=== PATIENT | female | born 1945 | race Asian ===

== ENCOUNTER 2016-09-15 09:52 | Outpatient (CLI) | payer MEDICARE, OTHER | END 2016-09-15 09:53 | disposition home or self-care (01) | DX: Z53.9 Procedure and treatment not carried out, unspecified reason (principal) ==

== ENCOUNTER 2016-09-15 09:55 | Outpatient (CLI) | payer MEDICARE, OTHER | END 2016-09-15 09:56 | disposition home or self-care (01) | DX: M85.88 Other specified disorders of bone density and structure, other site (principal) ==

== ENCOUNTER 2017-08-23 08:18 | Outpatient (CLI) | payer MEDICARE, OTHER ==
--- NOTE | 2017-08-24 21:28 | Mammography Report ---
DATE OF SERVICE: 08/23/2017 DIGITAL SCREENING MAMMOGRAM: 08/23/2017 CLINICAL INDICATION: A 72-year-old with history of late childbearing, family history of breast cancer for screening. COMPARISON: 08/2015, 06/2014, 05/2012. TECHNIQUE: Routine CC and MLO projections were obtained of the breasts. The breasts demonstrate heterogeneously dense fibroglandular parenchyma bilaterally. Coarse, typically benign calcifications are present. No suspicious masses, clustered microcalcifications, or regions of architectural distortion are identified. IMPRESSION: Benign findings. RECOMMENDATIONS: Routine annual screening unless otherwise clinically indicated. BIRADS category 2 benign findings. STANDARD QUALIFYING STATEMENTS 1. This examination was reviewed with the aid of Computed-Aided Detection (CAD). 2. A negative or benign imaging report should not delay biopsy if clinically suspicious findings are present. Consider surgical consultation if warranted. More than 5% of cancers are not identified by imaging. 3. Dense breasts may obscure an underlying neoplasm. TD: 08/24/2017 22:27
== END 2017-08-23 08:19 | disposition home or self-care (01) ==
LOC: DI 08:18
PROVIDERS: ATTEND Internal Medicine
DX: Z12.31 Encounter for screening mammogram for malignant neoplasm of breast (principal); Z80.3 Family history of malignant neoplasm of breast
CPT/HCPCS: 77067

== ENCOUNTER 2018-09-14 16:32 | Outpatient (CLI) | payer MEDICARE, OTHER ==
--- NOTE | 2018-09-15 08:09 | Mammography Report ---
Reason: SCREENING MAMMO Procedure Date: 09/14/2018 Accession Number: [id number] / [id number] Procedure: PRIYA - Screening Mammo w/Ernesto CPT Code: FULL RESULT: EXAM: Screening Mammo w/Ernesto DATE: 09/14/2018 5:05 PM CLINICAL HISTORY: Screening encounter. History of late childbearing. TECHNIQUE: Bilateral CC and MLO views were obtained. COMPARISON: 08/23/2017 through 07/03/2014. FINDINGS: The breasts demonstrate heterogeneously dense fibroglandular parenchyma bilaterally. Coarse typically benign calcifications are again seen. No suspicious masses, clustered microcalcifications, or regions of architectural distortion are identified. IMPRESSION: Benign findings RECOMMENDATION: Routine annual screening unless otherwise clinically indicated. BIRADS CATEGORY 2: Benign findings STANDARD QUALIFYING STATEMENTS: 1. This examination was not reviewed with the aid of Computer-Aided Detection (CAD). 2. A negative or benign imaging report should not delay biopsy if clinically suspicious findings are present. Consider surgical consultation if warrented. More than 5% of cancers are not identified by imaging. 3. Dense breasts may obscure an underlying neoplasm. 4. This examination was reviewed with the aid of 3D breast imaging (tomosynthesis).
== END 2018-09-14 16:33 | disposition home or self-care (01) ==
LOC: DI 16:32
PROVIDERS: ATTEND Internal Medicine
DX: Z12.31 Encounter for screening mammogram for malignant neoplasm of breast (principal)
CPT/HCPCS: 77063; 77067

== ENCOUNTER 2019-03-24 09:03 | Outpatient (CLI) | payer MEDICARE, OTHER ==
--- NOTE | 2019-03-26 02:24 | XRAY Report ---
Reason: BILATE KNEE PAIN Procedure Date: 03/24/2019 Accession Number: [id number] / [id number] Procedure: XR - Knee 3 View BILAT CPT Code: FULL RESULT: EXAM: BILATERAL KNEE RADIOGRAPHY EXAM DATE: 03/24/2019 09:10 AM. CLINICAL HISTORY: Bilateral knee pain. COMPARISON: None. TECHNIQUE: 3 views each knee. FINDINGS: Right: Bones: No fracture seen. No acute osseous abnormality. Joints: No dislocation seen. Joint spaces are relatively well preserved. No joint effusion identified. Soft Tissues: Grossly unremarkable. Left: Bones: No fracture seen. No acute osseous abnormality. Joints: No dislocation seen. Joint spaces are relatively well preserved. No joint effusion identified. Soft Tissues: Grossly unremarkable. IMPRESSION: No significant abnormality seen in the knees bilaterally. Right: Kellgren Scott Grade 0. Left: Kellgren Scott Grade 0. Kellgren and Scott classification of osteoarthritis: Grade 0: no radiographic features of osteoarthritis are present Grade 1: doubtful joint space narrowing (JSN) and possible osteophytic lipping Grade 2: definite osteophytes and possible JSN on anteroposterior weight-bearing radiograph Grade 3: multiple osteophytes, definite JSN, sclerosis, possible bony deformity Grade 4: large osteophytes, marked JSN, severe sclerosis and definite bony deformity RADIA
== END 2019-03-24 09:04 | disposition home or self-care (01) ==
LOC: DI 09:03
PROVIDERS: ATTEND Internal Medicine
DX: M25.561 Pain in right knee (principal); M25.562 Pain in left knee

== ENCOUNTER 2019-12-12 13:33 | Emergency (ER) | payer MEDICARE, OTHER ==
--- NOTE | 2019-12-12 13:45 | ED Physician Documentation ---
PD HPI URI - Stated complaint Stated Complaint: FLU LIKE SYMPTOMS - Chief complaint Chief Complaint: General - History obtained from History obtained from: Patient - History of Present Illness Timing - onset: How many days ago (2) Timing duration: Days (2) Timing details: Abrupt onset, Still present, Waxing and waning Associated symptoms: Fever, Chills, Dyspnea (mild), NVD (nausea but no diarrhea, vomited couple of times). No: Dry cough, Productive cough, Chest pain Contributing factors: No: Sick contact, Immunocompromised, COPD / asthma Similar symptoms before: No diagnosis Recently seen: Not recently seen Review of Systems Constitutional: reports: Fever, Chills, Myalgias Nose: reports: Congestion. denies: Rhinorrhea / runny nose Throat: denies: Sore throat Cardiac: denies: Chest pain / pressure Respiratory: reports: Dyspnea. denies: Cough, Wheezing GI: reports: Nausea, Vomiting. denies: Abdominal Pain, Diarrhea : denies: Dysuria, Frequency Skin: denies: Rash, Lesions Musculoskeletal: denies: Neck pain, Back pain Neurologic: denies: Altered mental status, Headache PD PAST MEDICAL HISTORY - Past Medical History Cardiovascular: Hypertension - Present Medications Home Medications: Ambulatory Orders Medication Instructions Recorded Confirmed Sulfamethox/Trimeth 800/160 1 each PO BID #14 tablet 12/12/19 [Bactrim Ds 800/160] - Allergies Allergies/Adverse Reactions: Allergies Allergy/AdvReac Type Severity Reaction Status Date / Time No Known Drug Allergies Allergy Verified 12/12/19 13:42 PD ED PE NORMAL - Vitals Vital signs reviewed: Yes - General General: Alert and oriented X 3, No acute distress, Well developed/nourished - HEENT HEENT: Ears normal, Moist mucous membranes, Pharynx benign - Neck Neck: Supple, no meningeal sign, No adenopathy - Cardiac Cardiac: RRR, No murmur - Respiratory Respiratory: Clear bilaterally - Abdomen Abdomen: Normal bowel sounds, Soft, Non tender, Non distended - Back Back: No CVA TTP - Derm Derm: Normal color, Warm and dry, No rash - Extremities Extremities: Normal ROM s pain, No edema, No calf tenderness / cord - Neuro Neuro: Alert and oriented X 3, No motor deficit, Normal speech Results - Vitals Vitals: Vital Signs - 24 hr 12/12/19 12/12/19 12/12/19 13:38 13:57 15:22 Temperature 36.6 C 36.9 C 36.9 C Heart Rate 88 86 93 Respiratory 16 16 16 Rate Blood Pressure 130/80 120/73 130/76 O2 Saturation 98 97 99 Oxygen O2 Source Room air - Labs Labs: Laboratory Tests 12/12/19 14:25 Urine Color YELLOW Urine Clarity CLEAR Urine pH 6.0 Ur Specific [place] 1.010 Urine Protein NEGATIVE Urine Glucose (UA) NEGATIVE Urine Ketones NEGATIVE Urine Occult Blood LARGE H Urine Nitrite NEGATIVE Urine Bilirubin NEGATIVE Urine Urobilinogen 0.2 (NORMAL) Ur Leukocyte Esterase LARGE H Urine RBC 6-10 H Urine WBC >25 H Urine WBC Clumps PRESENT Ur Squamous Epith Cells NONE SEEN Urine Bacteria Moderate H Ur Microscopic Review INDICATED Urine Culture Comments INDICATED - Rads (name of study) chest xray Radiology: Prelim report reviewed (no infiltrates), See rad report PD MEDICAL DECISION MAKING - ED course Complexity details: considered differential (concern for viral illness. Othe rwise can look for occult infection with cXR and UA. ), d/w patient Departure - Departure Disposition: Home, Self Care Clinical Impression: Flu-like symptoms UTI (urinary tract infection) Qualifiers: Urinary tract infection type: acute cystitis Hematuria presence: without hematuria Qualified Code(s): N30.00 - Acute cystitis without hematuria Condition: Stable Record reviewed to determine appropriate education?: Yes Instructions: ED UTI Cystitis Female Follow-Up: Kimo Weems MD [Primary Care Provider] - Prescriptions: Sulfamethox/Trimeth 800/160 [Bactrim Ds 800/160] 1 each PO BID #14 tablet Comments: Your chest x-ray appears normal. Your COVID test should result tomorrow and will call you with the results. You do have signs of urinary tract infection on your urine test and hopefully this is the main cause of your symptoms. We will treated with Bactrim antibiotic twice daily for a week. Stay well-hydrated. Tylenol or ibuprofen if needed for fevers or pains. Recheck if not improving well over the next 2 to 3 days. I transmitted your prescription to [facility] in [place]. Discharge Date/Time: 12/12/19 15:24
[2019-12-12 14:39] LABS: BILIRUBIN,URINE NEGATIVE (NEGATIVE); GLUCOSE, URINE (UA) NEGATIVE (NEGATIVE); KETONES,URINE (UA) NEGATIVE (NEGATIVE); LEUKOCYTE ESTERASE, URINE LARGE (NEGATIVE); NITRITE,URINE NEGATIVE (NEGATIVE); OCCULT BLOOD,URINE LARGE (NEGATIVE); PROTEIN,URINE NEGATIVE (NEGATIVE); UROBILINOGEN,URINE 0.2 (NORMAL) E.U./dL (NORMAL)
[2019-12-12 14:45] LABS: CLARITY,URINE CLEAR (CLEAR)
[2019-12-12 14:58] LABS: BACTERIA,URINE Moderate /HPF (None Seen); SQUAMOUS EPITHELIAL CELL,UR NONE SEEN (<= Few); WBC CLUMPS,URINE PRESENT
--- NOTE | 2019-12-12 15:07 | XRAY Report ---
Reason: fever/malaise, no cough Procedure Date: 12/12/2019 Accession Number: [id number] / [id number] Procedure: XR - Chest 2 View X-Ray CPT Code: 98987 Final Report FULL RESULT: EXAM: CHEST RADIOGRAPHY EXAM DATE: 12/12/2019 02:26 PM. CLINICAL HISTORY: Fever/malaise, no cough. COMPARISON: None. TECHNIQUE: 2 views. FINDINGS: Lungs/Pleura: Mild bronchial wall thickening centrally. Minimal reticulation at the lung bases. No other focal consolidation or pleural effusions. No pneumothorax. Mediastinum: Cardiac silhouette size appears unremarkable. Tortuosity of the thoracic aorta. Atherosclerotic vascular calcification. Other: Cervical spine fusion hardware noted. IMPRESSION: 1. Mild bronchial wall thickening centrally, suggesting airways disease. 2. Minimal reticulation at the lung bases, which may be a small amount of atelectasis, scarring, or pneumonitis in the proper clinical setting. No other focal lung consolidation with pleural effusions. RADIA
[2019-12-12] MEDS ORDERED: SULFAMETH/TRIMETH DS 800/160 MG TABLET PO STA (15:17)
[2019-12-12 15:23] VITALS: BP 130/76
== END 2019-12-12 15:24 | disposition home or self-care (01) ==
LOC: ED 13:33
DX: R50.9 Fever, unspecified (principal); R06.00 Dyspnea, unspecified; R11.2 Nausea with vomiting, unspecified; N30.00 Acute cystitis without hematuria; I10 Essential (primary) hypertension; Z20.828 Contact with and (suspected) exposure to other viral communicable diseases
CPT/HCPCS: 71046; 81001; 81599; 87077; 87086; 87181; 99284; A9270; 81003

== ENCOUNTER 2020-02-08 10:06 | Outpatient (CLI) | payer MEDICARE ==
--- NOTE | 2020-02-08 16:52 | DEXA Report ---
Reason: OSTEOPENIA Procedure Date: 02/08/2020 Accession Number: [id number] / [id number] Procedure: DEX - Dexa Spine and/or Hip CPT Code: Final Report FULL RESULT: PROCEDURE: Dexa Spine and/or Hip INDICATIONS: OSTEOPENIA TECHNIQUE: Dual energy x-ray absorptiometry (DXA) was performed on a [id number]. Regions measured are the AP Spine, femoral neck, and if needed forearm. COMPARISON: 09/15/2016 FINDINGS: Lumbar Spine: Bone Mineral Density 1.008 g/cm/cm,T score -1.4, osteopenia Left Hip: Bone Mineral Density 0.930 g/cm/cm,T score -0.6, normal Left Femoral Neck: Bone Mineral Density 0.958 g/cm/cm, T score -0.6, normal (T score greater or equal to -1.0: NORMAL) (T score from -1.1 to -2.4: OSTEOPENIA) (T score less than or equal to -2.5 to: OSTEOPOROSIS) Impression: Mild osteopenia within the lumbar spine. Overall exam is relatively stable compared to prior exam with minimal interval progression in the left hip and femoral neck. Patients with diagnosis of osteoporosis or osteopenia should have regular bone mineral density assessment. For those eligible for Medicare, routine testing is allowed once every 2 years. Testing frequency can be increased for patients who have rapidly progressing disease or for those who are receiving medical therapy to restore bone mass. Reviewed by: Muna Cullen MD on 02/08/2020 4:51 PM PDT Approved by: Muna Cullen MD on 02/08/2020 4:51 PM PDT Station ID: [id number]
== END 2020-02-08 10:07 | disposition home or self-care (01) ==
LOC: DI 10:06
PROVIDERS: ATTEND Internal Medicine
DX: M85.80 Other specified disorders of bone density and structure, unspecified site (principal)
CPT/HCPCS: 77080

== ENCOUNTER 2021-06-23 10:49 | Emergency (ER) | payer MEDICARE ==
[2021-06-23 11:39] LABS: BASOPHILS # (AUTO) 0.1 10^3/uL (0.0-0.1); BASOPHILS % (AUTO) 0.4 %; EOSINOPHILS # (AUTO) 0.2 10^3/uL (0.0-0.7); EOSINOPHILS % (AUTO) 1.5 %; HCT - HEMATOCRIT 38.5 % (37.0-47.0); LYMPHOCYTES % (AUTO) 7.1 %; MEAN CORPUSCULAR HEMOGLOBIN 28.3 pg (27.0-31.0); MEAN CORPUSCULAR HGB CONC 33.8 g/dL (32.0-36.0); MEAN CORPUSCULAR VOLUME 83.9 fL (81.0-99.0); MEAN PLATELET VOLUME 9.6 fL (7.9-10.8); MONOCYTES # (AUTO) 0.7 10^3/uL (0.0-1.0); NEUTROPHILS # (AUTO) 12.4 10^3/uL (1.5-6.6); NEUTROPHILS % (AUTO) 85.7 %; PLT - PLATELET COUNT 195 10^3/uL (130-450); RED BLOOD COUNT 4.59 10^6/uL (4.20-5.40); RED CELL DISTRIBUTION WIDTH 13.2 % (12.0-15.0); WHITE BLOOD COUNT 14.4 x10^3/uL (4.8-10.8)
[2021-06-23 11:41] LABS: BILIRUBIN,URINE NEGATIVE (NEGATIVE); GLUCOSE, URINE (UA) NEGATIVE (NEGATIVE); KETONES,URINE (UA) NEGATIVE (NEGATIVE); LEUKOCYTE ESTERASE, URINE TRACE (NEGATIVE); NITRITE,URINE NEGATIVE (NEGATIVE); OCCULT BLOOD,URINE LARGE (NEGATIVE); PROTEIN,URINE TRACE mg/dL (NEGATIVE); UROBILINOGEN,URINE 0.2 (NORMAL) E.U./dL (NORMAL)
[2021-06-23 11:42] LABS: CLARITY,URINE HAZY (CLEAR)
[2021-06-23 11:50] LABS: BACTERIA,URINE Many /HPF (None Seen); SQUAMOUS EPITHELIAL CELL,UR FEW Squamous (<= Few)
[2021-06-23 11:53] LABS: ALBUMIN 4.6 g/dL (3.2-5.5); ALBUMIN/GLOBULIN RATIO 1.4 (1.0-2.2); BILIRUBIN,TOTAL 1.2 mg/dL (0.2-1.0); CALCIUM 9.3 mg/dL (8.5-10.3); CREATININE 0.9 mg/dL (0.4-1.0); POTASSIUM 3.5 mmol/L (3.5-5.0); TOTAL PROTEIN 7.8 g/dL (6.7-8.2)
[2021-06-23] MEDS ORDERED: SODIUM CHLORIDE 0.9% 1,000 ML IV STA (12:08)
[2021-06-23] MEDS ORDERED: cefTRIAXone 1 GM in SODIUM CHLORIDE 0.9% MINIBAG 100 ML IV STA (12:08)
--- NOTE | 2021-06-23 12:08 | ED Physician Documentation ---
History of Present Illness - Stated complaint Stated Complaint: CHILLS - Chief complaint Chief Complaint: General - History obtained from History obtained from: Patient - Additonal information Additional information: 76-year-old woman who is relatively healthy for age who last night developed chills and urinary incontinence without flank pain or measured fevers. She does not feel well but denies specific pains. No shortness of breath, cough, runny nose. The urinary incontinence is certainly acute for her. Review of Systems Constitutional: reports: Chills. denies: Fever Cardiac: denies: Chest pain / pressure, Palpitations Respiratory: denies: Dyspnea, Cough GI: denies: Abdominal Pain, Nausea, Vomiting PD PAST MEDICAL HISTORY - Past Medical History Cardiovascular: Hypertension Respiratory: None Neuro: None Endocrine/Autoimmune: None GI: None DAMAGE ASSESSOR: None : None HEENT: Chronic vision loss, Chronic sinusitis Psych: None Musculoskeletal: Other Derm: None - Past Surgical History Past Surgical History: Yes Ortho: Spine surgery /DAMAGE ASSESSOR: section, Hysterectomy - Present Medications Home Medications: Ambulatory Orders Medication Instructions Recorded Confirmed Atorvastatin Calcium [Lipitor] 80 mg PO HS 06/23/21 06/23/21 Ciprofloxacin HCl [Cipro] 500 mg PO BID #20 tablet 06/23/21 amLODIPine [Norvasc] 5 mg PO DAILY 06/23/21 06/23/21 - Allergies Allergies/Adverse Reactions: Allergies Allergy/AdvReac Type Severity Reaction Status Date / Time No Known Drug Allergies Allergy Verified 06/23/21 10:57 - Social History Does the pt smoke?: No Smoking Status: Never smoker Does the pt drink ETOH?: No Does the pt have substance abuse?: No - Immunizations Immunizations are current?: Yes - POLST Patient has POLST: No PD ED PE NORMAL - Vitals Vital signs reviewed: Yes - General General: Alert and oriented X 3, Other (Well-appearing laying in bed in no distress, modest resting tachycardia. Temperature on the high end of normal but technically not febrile) - Cardiac Cardiac: RRR, No murmur - Respiratory Respiratory: No respiratory distress, Clear bilaterally - Abdomen Abdomen: Normal bowel sounds, Soft, Non tender - Back Back: No CVA TTP, No spinal TTP - Derm Derm: Normal color, Warm and dry - Extremities Extremities: No edema, No calf tenderness / cord - Neuro Neuro: Alert and oriented X 3, Normal speech - Psych Psych: Normal mood, Normal affect Results - Vitals Vitals: Vital Signs - 24 hr 06/23/21 10:57 Temperature 37.7 C Heart Rate 119 H Respiratory 18 Rate Blood Pressure 109/71 O2 Saturation 96 Oxygen O2 Source Room air - Labs Labs: Laboratory Tests 06/23/21 06/23/21 06/23/21 11:15 11:35 11:35 WBC 14.4 H RBC 4.59 Hgb 13.0 Hct 38.5 MCV 83.9 MCH 28.3 MCHC 33.8 RDW 13.2 Plt Count 195 MPV 9.6 Neut # (Auto) 12.4 H Lymph # (Auto) 1.0 L Hood # (Auto) 0.7 Eos # (Auto) 0.2 Baso # (Auto) 0.1 Absolute Nucleated RBC 0.00 Nucleated RBC % 0.0 Sodium 140 Potassium 3.5 Chloride 104 Carbon Dioxide 23 Anion Gap 13.0 BUN 17 Creatinine 0.9 Estimated GFR (MDRD) 61 L Glucose 139 H Lactic Acid Calcium 9.3 Total Bilirubin 1.2 H AST 23 ALT 30 Alkaline Phosphatase 83 Total Protein 7.8 Albumin 4.6 Globulin 3.2 Albumin/Globulin Ratio 1.4 Urine Color YELLOW Urine Clarity HAZY Urine pH 6.0 Ur Specific [place] 1.010 Urine Protein TRACE Urine Glucose (UA) NEGATIVE Urine Ketones NEGATIVE Urine Occult Blood LARGE H Urine Nitrite NEGATIVE Urine Bilirubin NEGATIVE Urine Urobilinogen 0.2 (NORMAL) Ur Leukocyte Esterase TRACE H Urine RBC 6-10 H Urine WBC 4-5 Ur Squamous Epith Cells FEW Squamous Urine Bacteria Many H Ur Microscopic Review INDICATED Urine Culture Comments INDICATED 06/23/21 11:35 WBC RBC Hgb Hct MCV MCH MCHC RDW Plt Count MPV Neut # (Auto) Lymph # (Auto) Hood # (Auto) Eos # (Auto) Baso # (Auto) Absolute Nucleated RBC Nucleated RBC % Sodium Potassium Chloride Carbon Dioxide Anion Gap BUN Creatinine Estimated GFR (MDRD) Glucose Lactic Acid 1.4 Calcium Total Bilirubin AST ALT Alkaline Phosphatase Total Protein Albumin Globulin Albumin/Globulin Ratio Urine Color Urine Clarity Urine pH Ur Specific [place] Urine Protein Urine Glucose (UA) Urine Ketones Urine Occult Blood Urine Nitrite Urine Bilirubin Urine Urobilinogen Ur Leukocyte Esterase Urine RBC Urine WBC Ur Squamous Epith Cells Urine Bacteria Ur Microscopic Review Urine Culture Comments PD MEDICAL DECISION MAKING - ED course ED course: This is a marcus 76-year-old woman who has pyelonephritis and is treated here with Rocephin and a prescription for Cipro. Departure - Departure Disposition: 01 Home, Self Care Clinical Impression: UTI (urinary tract infection) Qualifiers: Urinary tract infection type: acute pyelonephritis Qualified Code(s): N10 - Acute pyelonephritis Condition: Good Record reviewed to determine appropriate education?: Yes Instructions: ED Kidney Infec Female Prescriptions: Ciprofloxacin HCl [Cipro] 500 mg PO BID #20 tablet Comments: You had a IV dose of antibiotics today, so you do not need to fill the prescription until tomorrow. We will culture your urine, the results should be done in 48-72 hours. If an antibiotic change is necessary we will call you. Return if worse in the meantime, especially if you develop increasing flank pain, fevers, or cannot keep down the medication. Follow-up with your doctor Wednesday or for recheck.
[2021-06-23 13:18] VITALS: BP 120/67
== END 2021-06-23 13:31 | disposition home or self-care (01) ==
LOC: ED 10:49
DX: N10 Acute pyelonephritis (principal); I10 Essential (primary) hypertension
CPT/HCPCS: 36415; 80053; 81001; 81003; 83605; 85025; 87077; 87086; 87181; 96365; 99283

== ENCOUNTER 2022-01-19 09:15 | Outpatient (CLI) | payer MEDICARE ==
--- NOTE | 2022-01-19 11:34 | XRAY Report ---
PROCEDURE: Foot 3 View BILAT INDICATIONS: PAIN IN BILAT FEET TECHNIQUE: 3 views of the bilateral feet were acquired. COMPARISON: None FINDINGS: Bones: No fractures or dislocations. No suspicious bony lesions. Bilateral hallux valgus and bunio n. Mild bilateral first MTP degenerative change. Soft tissues: No tibiotalar joint effusion. Achilles tendon appears normal. IMPRESSION: Bilateral hallux valgus and bunion. Bilateral mild first MTP degenerative change. Reviewed by: Sanjay Martinez MD on 01/19/2022 11:33 AM PDT Approved by: Sanjay Martinez MD on 01/19/2022 11:33 AM PDT Station ID: [id number]
== END 2022-01-19 09:16 | disposition home or self-care (01) ==
LOC: DI 09:15
PROVIDERS: ATTEND Internal Medicine
DX: M20.12 Hallux valgus (acquired), left foot (principal); M20.11 Hallux valgus (acquired), right foot; M21.612 Bunion of left foot; M21.611 Bunion of right foot; M19.071 Primary osteoarthritis, right ankle and foot; M19.072 Primary osteoarthritis, left ankle and foot

== ENCOUNTER 2022-02-19 09:56 | Outpatient (CLI) | payer MEDICARE ==
--- NOTE | 2022-02-19 15:30 | DEXA Report ---
PROCEDURE: Dexa Spine and/or Hip INDICATIONS: OSTEOPENIA TECHNIQUE: Dual energy x-ray absorptiometry (DXA) was performed on a [employer]. Regions measur ed are the AP Spine, femoral neck, and if needed forearm. COMPARISON: DEXA 02/08/2020 FINDINGS: Lumbar Spine: Bone Mineral Density 1.019 g/cm/cm,T score -1.3, compared to -1.4 Left Hip: Bone Mineral Density 0.990 g/cm/cm,T score -0.1, compared to -0.6 Left Femoral Neck: Bone Mineral Density 1.040 g/cm/cm, T score 0, compared to -0.6 (T score greater or equal to -1.0: NORMAL) (T score from -1.1 to -2.4: OSTEOPENIA) (T score less than or equal to -2.5 to: OSTEOPOROSIS) Impression: Relatively stable mild osteopenia within the lumbar spine. Mild improved bone mineral density within the hip and femoral neck. Patients with diagnosis of osteoporosis or osteopenia should have regular bone mineral density assess ment. For those eligible for Medicare, routine testing is allowed once every 2 years. Testing frequ ency can be increased for patients who have rapidly progressing disease or for those who are receivin g medical therapy to restore bone mass. Reviewed by: Muna Cullen MD on 02/19/2022 3:28 PM PDT Approved by: Muna Cullen MD on 02/19/2022 3:28 PM PDT Station ID: [id number]
== END 2022-02-19 09:57 | disposition home or self-care (01) ==
LOC: DI 09:56
PROVIDERS: ATTEND Internal Medicine
DX: M85.88 Other specified disorders of bone density and structure, other site (principal)

== ENCOUNTER 2023-01-11 14:10 | Outpatient (CLI) | payer MEDICARE ==
--- NOTE | 2023-01-11 16:54 | XRAY Report ---
PROCEDURE: Hip w/Pelvis 2-3V LT INDICATIONS: PX IN LT HIP TECHNIQUE: AP pelvis with lateral view(s) of the left hip(s). COMPARISON: None. FINDINGS: Bones: Nonuniform joint space narrowing with associated osteophytic lipping. Significant dystrophic calcification about the femoral neck. Soft tissues: No suspicious soft tissue calcifications or masses. IMPRESSION: No acute bony abnormality. Mild to moderate left hip osteoarthritis. Kellgren-Scott scale of osteoarthritis: 2 Significant dystrophic calcification about the femoral neck, probably indicating prior injury. Reviewed by: Dandre Agee on 01/11/2023 4:52 PM PDT Approved by: Dandre Agee on 01/11/2023 4:52 PM PDT Station ID: [id number]
== END 2023-01-11 14:11 | disposition home or self-care (01) ==
LOC: DI 14:10
PROVIDERS: ATTEND Internal Medicine
DX: M16.12 Unilateral primary osteoarthritis, left hip (principal); M25.852 Other specified joint disorders, left hip

== ENCOUNTER 2023-08-04 10:33 | Outpatient (CLI) | payer MEDICARE ==
--- NOTE | 2023-08-06 11:35 | Mammography Report ---
BILATERAL DIGITAL SCREENING MAMMOGRAM 3D/2D: 08/04/2023 CLINICAL: Routine screening. Comparison is made to exams dated: 09/14/2018 mammogram, 08/23/2017 mammogram, and 09/03/2015 mammogram - [facility]. Both breasts are heterogeneously dense, which may obscure small masses (category c / 51-75% glandular tissue). No significant masses, calcifications, or other findings are seen in either breast. There has been no significant interval change. IMPRESSION: NEGATIVE There is no mammographic evidence of malignancy. A 1 year screening mammogram is recommended. Based on the Tyrer Cuzick model (a risk assessment model) the patients lifetime risk is 9.7% and her 10 year risk is 0.0%. According to the ACR, ACS, and NCCN guidelines, an annual breast MRI exam diane g with mammogram is recommended if the patients lifetime risk is 20% or greater. This exam was interpreted at Station ID: [id number]. NOTE: For mammograms, a report in lay terms will be sent to the patient. Approximately 15% of breast malignancies will not be visualized mammographically. In the management of a palpable breast mass, a negative mammogram must not discourage biopsy of a clinically suspicious lesion. Electronically Signed By: Perry bermeo/carlota:08/04/2023 17:37:23 ACR BI-RADS Category 1: Negative 3341F PARENCHYMAL PATTERN: (D) - The breast(s) demonstrate(s) heterogeneously dense fibroglandular john can. BI-RADS CATEGORY: (1) - 1 Mammogram [id number] 1 year screening LATERALITY: (B)
== END 2023-08-04 10:34 | disposition home or self-care (01) ==
LOC: DI 10:33
PROVIDERS: ATTEND Internal Medicine
DX: Z12.31 Encounter for screening mammogram for malignant neoplasm of breast (principal); R92.333 Mammographic heterogeneous density, bilateral breasts

== ENCOUNTER 2023-10-06 11:11 | Outpatient (CLI) | payer MEDICARE | END 2023-10-06 11:12 | disposition home or self-care (01) | LOC: RT 11:11 | PROVIDERS: ATTEND Dentist General Practice | DX: Z01.810 Encounter for preprocedural cardiovascular examination (principal) | CPT/HCPCS: 93005 ==

== ENCOUNTER 2023-11-26 11:45 | Outpatient (CLI) | payer MEDICARE, OTHER ==
--- NOTE | 2023-11-26 12:42 | XRAY Report ---
PROCEDURE: Finger(s) RT INDICATIONS: DEFORMITY OF RT SMALL FINGER TECHNIQUE: AP hand, 2 views of the fifth finger(s) acquired. COMPARISON: None. FINDINGS: Bones: No fractures or dislocations. No suspicious bony lesions. Soft tissues: No suspicious soft tissue calcifications or masses. IMPRESSION: No acute bony abnormality. Reviewed by: Efren Schuster MD on 11/26/2023 12:40 PM PDT Approved by: Efren Schuster MD on 11/26/2023 12:40 PM PDT Station ID: [id number]
== END 2023-11-26 11:46 | disposition home or self-care (01) ==
LOC: DI 11:45
PROVIDERS: ATTEND Internal Medicine
DX: M20.001 Unspecified deformity of right finger(s) (principal)

== ENCOUNTER 2023-12-23 08:18 | Outpatient (CLI) | payer OTHER ==
--- NOTE | 2023-12-23 14:23 | XRAY Report ---
PROCEDURE: Finger(s) RT INDICATIONS: RIGHT FINGER PAIN TECHNIQUE: AP hand, 3 views of the 5th finger(s) acquired. COMPARISON: 11/26/2023. FINDINGS: Bones: No acute fractures or dislocations. No suspicious bony lesions. Background degenerative miranda ges of the right hand. Mild persistent flexion at the proximal interphalangeal joint of the fifth fin regine. Soft tissues: No suspicious soft tissue calcifications or masses. Persistent focal swelling at the fifth finger proximal interphalangeal joint. IMPRESSION: No acute or subacute bony abnormality. Persistent soft tissue swelling over the fifth finger proximal interphalangeal joint. If there is continued clinical concern for pathology or occult fracture, consider follow-up imaging w ith advanced imaging (CT, MRI) if symptoms persist. Reviewed by: Brett Welsh MD on 12/23/2023 2:22 PM PDT Approved by: Brett Welsh MD on 12/23/2023 2:22 PM PDT Station ID: [id number]
== END 2023-12-23 08:19 | disposition home or self-care (01) ==
LOC: DI 08:18
PROVIDERS: ATTEND Physician Assistant Surgical
DX: M79.644 Pain in right finger(s) (principal); R22.31 Localized swelling, mass and lump, right upper limb